=== PATIENT | male | born 1970 | race Caucasian/White ===

== ENCOUNTER 2016-12-16 04:51 | Emergency (ER) | payer OTHER ==
[~2016-12-16] VITALS: Ht 177.8 cm; Wt 81.6 kg
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
[2016-12-16] MEDS ORDERED: DEXTROAMP-AMPHE30 MG PO (05:07)
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
[2016-12-16] MEDS ORDERED: PERCOCET 5-3251 EACH PO (07:58)
[2016-12-16] MEDS ORDERED: CYCLOBENZAPRINE10 M1 PO (07:58)
[2016-12-16 08:08] VITALS: BP 140/98
== END 2016-12-16 08:09 ==
LOC: ERH 04:51
DX: S01.81XA Laceration without foreign body of other part of head, initial encounter (principal); S09.90XA Unspecified injury of head, initial encounter; S09.92XA Unspecified injury of nose, initial encounter; V47.5XXA Car driver injured in collision with fixed or stationary object in traffic accident, initial encounter; Y93.9 Activity, unspecified; Y92.488 Other paved roadways as the place of occurrence of the external cause
CPT/HCPCS: 90471; 90714